=== PATIENT | female | born 1955 | race Caucasian/White ===

== ENCOUNTER 2020-12-28 21:39 | Emergency (ER) | payer MEDICAID, SELFPAY ==
[2020-12-28 22:05] VITALS: BP 181/114; PULSE 130; RESP 19; TEMP 36.8; O2SAT 100; BMI 16.8
[2020-12-28 22:30] VITALS: BP 157/98; O2SAT 100
--- NOTE | 2020-12-28 22:47 | XR_ITS ---
PROCEDURE INFORMATION: Exam: XR Chest Exam date and time: 12/28/2020 10:47 PM Age: 65 years old Clinical indication: Other: Malaise, palpatations, ; additional info: Malaise, palpitations, cachectic TECHNIQUE: Imaging protocol: XR of the chest. Views: 1 view. COMPARISON: No relevant prior studies available. FINDINGS: Lungs: Emphysema. Granulomatous changes. No pneumonia. Pleural spaces: Unremarkable. No pleural effusion. No pneumothorax. Heart/Mediastinum: Unremarkable. No cardiomegaly. Bones/joints: Unremarkable. IMPRESSION: No acute findings.
[2020-12-28 23:07] LABS: Basophils # 0.1 K/mm3 (0-0.2); Eosinophils # 0.1 K/mm3 (0.0-0.4); Lymphocytes # 1.1 K/mm3 (0.7-4.5); White Blood Count 7.9 K/mm3 (4.8-10.8)
[2020-12-28 23:11] LABS: Eosinophils % 0.9 % (0.1-12.0); Hematocrit 51.9 % (37.0-47.0); Mean Corpuscular HGB Conc 35.2 g/dL (31.8-35.4); Mean Corpuscular Hemoglobin 31.5 pg (27.0-31.2); Mean Corpuscular Volume 89.6 fl (81-99); Mean Platelet Volume 9.7 fl (7.4-10.4); Monocytes # 0.5 K/mm3 (0.1-1.0); Monocytes % 6.5 % (1.7-9.3); Neutrophils # 6.1 K/mm3 (1.8-7.8); Neutrophils % 77.6 % (37.0-80.0); Platelet Count 181 K/mm3 (142-424); Red Blood Count 5.79 M/mm3 (4.20-5.40); Red Cell Distribution Width 14.7 % (11.5-17.5)
[2020-12-28 23:13] LABS: Hemoglobin 18.3 g/dL (12.2-16.2)
--- NOTE | 2020-12-28 23:15 | ECG_ITS ---
APPROVED REPORT Exam: Resting ECG HR:103 bpm ECG Measurements Heart Rate 103 AXES WV 152 P 94 QRSd 70 QRS 75 QT 380 T 79 QTc 497 Conclusion Sinus tachycardia Possible Left atrial enlargement Borderline ECG Electronically signed by : Sarkis Stevens MD 12/29/2020 20:15:38
[2020-12-28 23:17] LABS: Lactic Acid 1.7 mmol/L (0.7-2.1); Magnesium 1.7 mg/dl (1.6-2.3)
[2020-12-28 23:18] LABS: Alanine Aminotransferase 28 U/L (12-78); Albumin Level 3.6 g/dl (3.5-5.0); Albumin/Globulin Ratio 1.1 (1.1-1.8); Alkaline Phosphatase 111 U/L (38-126); Anion Gap 9.7 mEq/L (5-15); Aspartate Amino Transferase 37 U/L (14-36); Calcium 9.5 mg/dl (8.4-10.2); Carbon Dioxide 31 mmol/L (22.0-30.0); Chloride 88 mmol/L (98-107); Creatinine Clearance Estimated 39 mL/min (50-200); Estimated Glomerular Filt Rate 161 ml/min (>60); GFR (African American) 194 ML/MIN (>60); Globulin 3.2 g/dL (1.3-3.2); Glucose 113 mg/dl (74-100); Sodium 126 mmol/L (136-145); Total Protein,Serum 6.8 g/dl (6.3-8.2)
[2020-12-28 23:19] LABS: Blood Urea Nitrogen < 2 mg/dl (7-17); Potassium 2.7 mmoL/L (3.5-5.1)
--- NOTE | 2020-12-28 23:23 | PC.NURSE ---
notified of critical potassium
[2020-12-28 23:30] LABS: Troponin I < 0.01 ng/ml (0.00-0.034)
[2020-12-28 23:59] LABS: Appearance,Urine SL CLOUDY (Clear); Bilirubin,Urine Negative (Negative); Blood, Urine 1+ (Negative); Color,Urine YELLOW (Yellow); Glucose,Urine (UA) Negative (Negative); Ketones,Urine Negative (Negative); Leukocyte Esterase,Urine 1+ (Negative); Microscopic, Urine URINE MICROSCOPIC (MICROSCOPIC); Nitrate,Urine POSITIVE (Negative); PH,Urine 6.5 (5.0-8.5); Protein,Urine Negative (Negative); Urobilinogen,Urine 0.2 EU/dl (0.2)
[2020-12-29 00:03] LABS: Bacteria,Urine 2+ /lpf; WBC,Urine 20-50 #/hpf (0-3)
[2020-12-29 02:31] VITALS: BP 152/79; PULSE 100; RESP 18; TEMP 36.8; O2SAT 100
[2020-12-29 02:31] LABS: Troponin I < 0.01 ng/ml (0.00-0.034)
--- NOTE | 2020-12-29 05:22 | [facility].EDGENADL ---
ED Disposition Clinical Impression: Hypokalemia, Malnutrition due to starvation, Dehydration Urinary tract infection Qualifiers: Urinary tract infection type: acute cystitis Hematuria presence: with hematuria Qualified Code(s): N30.01 - Acute cystitis with hematuria Disposition: Home, Self-Care Condition on Discharge: Good Instructions: Urinary Tract Infection Additional Instructions: You have been prescribed antibiotics for your urinary tract infection. Please take as prescribed. Please continue supportive care at home including plenty of fluids such as Gatorade or Pedialyte. Please be mindful of eating a nutritious diet with plenty of fruits and vegetables and protein. If your condition worsens or any other concerning symptoms arise, please return to the emergency department for reassessment. Otherwise, please establish care and follow-up with a primary care doctor within the next week to ensure resolution of symptoms. Prescriptions: Sulfamethoxazole/Trimethoprim [Bactrim DS tablet] 1 each PO BID 7 Days tab Prescription Printed Referrals: Ashley Osborn APRN [Nurse Practitioner] - Provider,Referral, [Primary Care Provider] - - Critical Care Critical Care Time: No Attestation: On 12/28/20, the high probability of a clinically significant, sudden or life threatening deterioration of the following system(s) required my full and direct attention, intervention and personal management. The time I documented below is in addition to time spent performing reported procedures but includes the following listed in this critical care notation. Medical Decision Making - Medical Records Medical records reviewed: Yes: I reviewed the patient's medical records. - Cristhian Inquiry Pt receiving controlled substance: No Vital Signs: 12/28/20 22:05 12/28/20 22:30 12/29/20 02:31 Temperature 98.3 F 98.3 F Temperature Source Oral Pulse Rate 100 H Pulse Rate [Right] 130 H Respiratory Rate 19 18 Blood Pressure 157/98 H 152/79 H Blood Pressure [Right Arm] 181/114 H Blood Pressure Mean [Right Arm] 136 Blood Pressure Source [Right Arm] Automatic Cuff 02 Sat by Pulse Oximetry 100 100 Oxygen Delivery Method Room Air Room Air Room Air - Lab Data Lab results reviewed: Yes: I reviewed the patient's lab results. Lab Results 12/28/20 22:55: WBC 7.9, RBC 5.79 H, Hgb 18.3 H, Hct 51.9 H, MCV 89.6, MCH 31.5 H, MCHC 35.2, RDW 14.7, Plt Count 181, MPV 9.7, Neut % (Auto) 77.6, Lymph % (Auto) 14.0, [place] % (Auto) 6.5, Eos % (Auto) 0.9, Baso % (Auto) 1.0, Neut # (Auto) 6.1, Lymph # (Auto) 1.1, [place] # (Auto) 0.5, Eos # (Auto) 0.1, Baso # (Auto) 0.1 12/28/20 22:55: Sodium 126 L, Potassium 2.7 L*, Chloride 88 L, Carbon Dioxide 31 H, Anion Gap 9.7, BUN < 2 L, Creatinine 0.40 L, Estimated Creat Clear 39, Estimated GFR 161, Est GFR ( Amer) 194, Glucose 113 H, Calcium 9.5, Total Bilirubin 1.0, AST 37 H, ALT 28, Alkaline Phosphatase 111, Troponin I < 0.01, Total Protein 6.8, Albumin 3.6, Globulin 3.2, Albumin/Globulin Ratio 1.1 12/28/20 22:55: Lactate 1.7 12/28/20 22:55: Magnesium 1.7 12/28/20 23:53: Urine Color Yellow, Urine Appearance Sl cloudy, Urine pH 6.5, Ur Specific [place] 1.010, Urine Protein Negative, Urine Glucose (UA) Negative, Urine Ketones Negative, Urine Blood 1+, Urine Nitrate Positive, Urine Bilirubin Negative, Urine Urobilinogen 0.2, Ur Leukocyte Esterase 1+ A, Urine RBC 5-10, Urine WBC 20-50, Urine Bacteria 2+ 12/29/20 02:04: Troponin I < 0.01 Result diagrams: 12/28/20 22:55 12/28/20 22:55 Orders (Tests/Meds): ED MEDICATIONS Discontinued Medications Generic Name Dose Route Start Last Admin Trade Name Freq PRN Reason Stop Dose Admin Lactated Ringer's 1,000 mls @ 999 mls/hr 12/28/20 22:45 12/28/20 22:40 Lactated Ringer's 1000 Ml Bag IV 12/28/20 23:45 999 mls/hr .Q1H1M NYA Administration Magnesium Sulfate 2 gm/ Sodium 104 mls @ 100 mls/hr 12/28/20 23:27 12/29/20 00:52 Hamiad
== END 2020-12-29 02:34 | disposition home or self-care (01) ==
PROVIDERS: Emergency Provider Emergency Medicine
DX: E86.0 Dehydration (principal); E87.6 Hypokalemia; E46 Unspecified protein-calorie malnutrition; N30.01 Acute cystitis with hematuria; F17.210 Nicotine dependence, cigarettes, uncomplicated
CPT/HCPCS: 71045; 80053; 81001; 83605; 83735; 84484; 85025; 87086; 87088; 87186; 93005; 96365; 96367; 99284